=== PATIENT | female | born 1940 | race Caucasian/White ===

== ENCOUNTER 2025-02-21 09:07 | Inpatient (IN) | payer OTHER ==
[~2025-02-21] VITALS: Ht 154.9 cm; Wt 55.8 kg
[2025-02-21 09:09] VITALS: O2SAT 98
[2025-02-21 10:16] LABS: BASOPHILS % 0.0 % (0.0-2.0); EOSINOPHILS % 0.3 % (0.0-5.0); HEMATOCRIT. 32.5 % (36.0-48.0); HEMOGLOBIN. 9.8 g/dL (12.0-16.0); LYMPHOCYTES % 7.9 % (20.0-50.0); MEAN PLATELET VOLUME 8.0 fl (7.4-10.4); MONOCYTES % 2.6 % (2.0-8.0); NEUTROPHILS % 89.2 % (40.0-76.0); PLATELET 243 x1000/uL (130-400); RED BLOOD CELL COUNT 3.33 mill/uL (4.2-5.4); RED CELL DISTRIBUTION WIDTH 22.3 % (11.6-14.6)
[2025-02-21 10:18] LABS: ADD RBC MORPHOLOGY YES
[2025-02-21 10:39] LABS: CREATININE 1.6 mg/dL (0.6-1.0); UREA NITROGEN BLOOD 37 mg/dL (9-23)
[2025-02-21 10:40] LABS: ETHANOL BLOOD < 10 mg/dL (<10)
[2025-02-21 10:41] LABS: ASPARTATE AMINOTRANSFERASE 145 IU/L (<34); BILIRUBIN DIRECT 0.2 mg/dL (<=3.0); BILIRUBIN TOTAL 0.4 mg/dL (0.1-1.0); PROTEIN TOTAL 5.3 g/dL (6.0-8.3)
[2025-02-21 11:06] LABS: PLATELET ESTIMATE NORMAL
[2025-02-21] MEDS: CEFTRIAXONE 1GM/50ML 50 ML IV NR (12:21)
[2025-02-21] MEDS: SODIUM ZIRCONIUM CYCLOSILICATE 10GM/PACKET PO NR (12:21)
[2025-02-21] MEDS: SODIUM CHLORIDE 0.9% 1,000 ML IV NR (12:22)
[2025-02-21] MEDS: ACETAMINOPHEN 325MG TABLET PO NR (12:22)
[2025-02-21 13:09] LABS: TROPONIN I HIGH SENSITIVITY < 4 ng/L (3.0-34)
[2025-02-21] MEDS: CALCIUM GLUCONATE 100MG/ML 10ML VIAL IV NR (13:20)
[2025-02-21 13:25] LABS: CLARITY URINE CLOUDY (CLEAR); COLOR URINE DARK YELLOW (YELLOW); GLUCOSE URINE NEGATIVE (NEGATIVE); KETONES URINE NEGATIVE (NEGATIVE); LEUKOCYTE ESTERASE URINE 3+ (NEGATIVE); NITRITE URINE NEGATIVE (NEGATIVE); OCCULT BLOOD URINE 3+ (NEGATIVE); PH URINE 7.0 (4.5-8.0); PROTEIN URINE 3+ (NEGATIVE); SPECIFIC GRAVITY URINE 1.017 (1.005-1.030); UROBILINOGEN URINE 0.2 E.U./dL (0.2-1.0)
[2025-02-21] MEDS ORDERED: DOXYCYCLINE HYCLATE 100 MG/VIAL IV ONE (13:30)
[2025-02-21 13:37] LABS: BACTERIA URINE 2+; RBC URINE TNTC /hpf (0-2); SQUAMOUS EPITHELIAL CELL URINE 1+ /lpf (RARE/1+); WBC URINE TNTC /hpf (0-2); YEAST URINE NONE SEEN
[2025-02-21 13:40] LABS: *AMPHETAMINES SCREEN URINE NEGATIVE (NEGATIVE); *BARBITURATES SCREEN URINE NEGATIVE (NEGATIVE); *BENZODIAZEPINES SCREEN URINE NEGATIVE (NEGATIVE); *COCAINE SCREEN URINE NEGATIVE (NEGATIVE); CANNABINOID URINE SCREEN NEGATIVE (NEGATIVE); METHADONE URINE SCREEN NEGATIVE (NEGATIVE); OPIATES URINE SCREEN NEGATIVE (NEGATIVE); PHENCYCLIDINE URINE SCREEN NEGATIVE (NEGATIVE)
[2025-02-21 13:41] LABS: ECSTASY MDMA SCREEN URINE NEGATIVE (NEGATIVE)
[2025-02-21] MEDS: NOREPINEPHRINE 8 MG in DEXT 5% WATER 242 ML IV ONE (16:00)
[2025-02-21] MEDS ORDERED: NOREPINEPHRINE 8MG/250ML PMX 250 ML IV PRN (16:45)
[2025-02-21] MEDS: SODIUM CHLORIDE 0.9% 500 ML IV ONE (16:45)
[2025-02-21] MEDS: DOXYCYCLINE 100MG/100ML 100 ML IV SCH (17:11)
[2025-02-21] MEDS: SODIUM CHLORIDE 0.9% 1,000 ML IV ONE (17:11)
[2025-02-21] MEDS ORDERED: ONDANSETRON HCL 4MG/2ML INJ IV PRN (17:30)
[2025-02-21] MEDS: BLOOD SUGAR DIAGNOSTIC STRIP TEST SCH (20:11)
[2025-02-21] MEDS: INSULIN LISPRO 100 UNITS/ML SUBCUT SCH (20:11)
[2025-02-21] MEDS ORDERED: IOHEXOL-300 100 ML BOTTLE ONE (23:51)
[2025-02-22] MEDS ORDERED: ACETAMINOPHEN 325MG TABLET PO PRN (00:30)
[2025-02-22] MEDS: TRAMADOL 50MG TABLET PO PRN (00:35)
[2025-02-22 03:00] VITALS: BP 92/41; PULSE 60; RESP 18; TEMP 36.2512
[2025-02-22] MEDS: DEXTROSE 50% WATER 50ML SYRINGE IV PRN (03:20)
[2025-02-22 04:00] VITALS: BP 93/54; PULSE 65; RESP 18; TEMP 35.8; O2SAT 96
[2025-02-22] MEDS ORDERED: LIDOCAINE HCL 1% 10 MG/ML 10ML VIAL ONE (07:04)
[2025-02-22 08:03] LABS: BASOPHILS % 0.1 % (0.0-2.0); EOSINOPHILS % 0.5 % (0.0-5.0); HEMATOCRIT. 29.0 % (36.0-48.0); HEMOGLOBIN. 8.7 g/dL (12.0-16.0); LYMPHOCYTES % 8.5 % (20.0-50.0); MEAN PLATELET VOLUME 7.9 fl (7.4-10.4); MONOCYTES % 2.0 % (2.0-8.0); NEUTROPHILS % 88.9 % (40.0-76.0); PLATELET 225 x1000/uL (130-400); RED BLOOD CELL COUNT 2.90 mill/uL (4.2-5.4); RED CELL DISTRIBUTION WIDTH 22.3 % (11.6-14.6)
[2025-02-22 08:05] LABS: CREATININE 1.3 mg/dL (0.6-1.0)
[2025-02-22 08:06] LABS: UREA NITROGEN BLOOD 31 mg/dL (9-23)
[2025-02-22 08:07] LABS: ASPARTATE AMINOTRANSFERASE 145 IU/L (<34)
[2025-02-22 08:08] LABS: BILIRUBIN DIRECT 0.1 mg/dL (<=3.0); BILIRUBIN TOTAL 0.2 mg/dL (0.1-1.0); PHOSPHORUS 4.4 mg/dL (2.5-4.9); PROTEIN TOTAL 4.1 g/dL (6.0-8.3)
[2025-02-22 08:44] LABS: HEPATITIS C AB NON REACTIVE (Neg) (Negative)
[2025-02-22 09:34] VITALS: BP 119/49; PULSE 65; RESP 18; TEMP 36.2; O2SAT 95
[2025-02-22] MEDS: THIAMINE HCL 100MG TABLET PO SCH (09:53)
[2025-02-22] MEDS: MULTIVITAMINS,THER W-MINERALS TABLET PO SCH (09:53)
[2025-02-22] MEDS: DEXT 5%/0.9% NACL 1,000 ML IV SCH (09:55)
[2025-02-22 12:00] VITALS: BP 91/54; PULSE 63; RESP 18; TEMP 36.4; O2SAT 97
[2025-02-22] MEDS ORDERED: CEFTRIAXONE 1GM/50ML 50 ML IV SCH (12:00)
[2025-02-22] MEDS: CEFTRIAXONE 1GM/50ML 50 ML IV SCH (12:49)
[2025-02-22 16:00] VITALS: BP 118/42; PULSE 57; RESP 16; TEMP 36.2; O2SAT 96
[2025-02-22 17:21] VITALS: BP 118/42; PULSE 57; RESP 16; TEMP 97.1
== END 2025-02-22 19:25 | disposition short-term general hospital (02) | DRG 689 ==
LOC: EDBEDREQ 09:27 → ER 09:59 → EDBEDREQSVC 17:33 → EDBEDREQ 17:33 → EDBEDREQTM 17:33 → 6WST 21:01
PROVIDERS: ADMIT Student in an Organized Health Care Education/Training Program; ATTEND Student in an Organized Health Care Education/Training Program
PROC: 05HY33Z Insertion of Infusion Device into Upper Vein, Percutaneous Approach (ICD-10-PCS; principal; 2025-02-22)
PROC: B54MZZA Ultrasonography of Right Upper Extremity Veins, Guidance (ICD-10-PCS; 2025-02-22)
DX: N39.0 Urinary tract infection, site not specified (principal); E43 Unspecified severe protein-calorie malnutrition; E83.51 Hypocalcemia; K83.8 Other specified diseases of biliary tract; K86.89 Other specified diseases of pancreas; I50.9 Heart failure, unspecified; N17.9 Acute kidney failure, unspecified; N18.9 Chronic kidney disease, unspecified; F32.A Depression, unspecified; E87.1 Hypo-osmolality and hyponatremia; Z20.822 Contact with and (suspected) exposure to COVID-19; R55 Syncope and collapse; R31.9 Hematuria, unspecified; R74.8 Abnormal levels of other serum enzymes; E78.00 Pure hypercholesterolemia, unspecified; F41.9 Anxiety disorder, unspecified; E87.5 Hyperkalemia; Z79.899 Other long term (current) drug therapy; Z86.73 Personal history of transient ischemic attack (TIA), and cerebral infarction without residual deficits; Z90.49 Acquired absence of other specified parts of digestive tract; Z68.23 Body mass index [BMI] 23.0-23.9, adult
CPT/HCPCS: 36415; 36573; 71045; 73560; 74177; 74181; 76705; 80048; 80076; 80305; 80307; 80320; 80329; 81003; 82140; 82150; 82550; 82728; 82962; 83036; 83540; 83550; 83605; 83735; 84100; 84443; 84484; 85025; 86705; 87340; 87426; 93005; 93970; 96365; 99285; A4606; C1725; J0612; J0696; J2003; J3490; J7030; J7040; J7042; J7060; Q9967; G0480